=== PATIENT | female | born 1990 | race Caucasian/White ===

== ENCOUNTER 2016-12-15 00:05 | Emergency (ER) | payer MEDICAID ==
[2016-12-15 00:28] VITALS: RESP 20; TEMP 98; O2SAT 99
[2016-12-15] MEDS ORDERED: LIDOCAINE HCL 2% (VISCOUS) 20 ML SOL ONE (00:30)
[2016-12-15] MEDS ORDERED: ALUMINUM/MAGNESIUM 30 ML SUS ONE (00:30)
[2016-12-15 00:35] LABS: APPEARANCE,URINE Slightly Cloudy; BILIRUBIN,URINE NEGATIVE (NEGATIVE); COLOR,URINE Yellow; GLUCOSE, URINE (UA) NEGATIVE (NEGATIVE); KETONES,URINE TRACE (NEGATIVE); LEUKOCYTE ESTERASE ,URINE NEGATIVE (NEGATIVE); NITRATE,URINE NEGATIVE (NEGATIVE); OCCULT BLOOD,URINE NEGATIVE (NEG-TRACE); PH,URINE 5.5; UROBILINOGEN,URINE 0.2 (0.2-1.0 EU)
[2016-12-15] MEDS ORDERED: ALUMINUM/MAGNESIUM 30 ML SUS PO ONE (00:43)
[2016-12-15] MEDS ORDERED: LIDOCAINE HCL 2% (VISCOUS) 20 ML SOL MT ONE (00:43)
[2016-12-15 00:45] LABS: RBC,URINE NEG (0-3AV/HPF)
[2016-12-15 00:59] VITALS: BP 123/87; PULSE 88
[2016-12-15 15:56] LABS: BASOPHILS % (AUTO) 1 % (0-3); EOSINOPHILS % (AUTO) 0 % (0-9); HEMATOCRIT 40 % (35-47); MEAN CORPUSCULAR HGB CONC 34.8 gm/dl (32.0-36.0); MEAN CORPUSCULAR VOLUME 91 fL (81-99); MONOCYTES % (AUTO) 9.6 % (0-12)
[2016-12-15 16:19] LABS: ALBUMIN 4.1 gm/dl (3.4-5.0); CALCIUM 8.9 mg/dl (8.5-10.1); POTASSIUM 3.9 mMol/L (3.5-5.1)
== END 2016-12-15 00:57 | disposition home or self-care (01) | DRG 392 ==
LOC: ED 00:05
DX: K52.9 Noninfective gastroenteritis and colitis, unspecified (principal)
CPT/HCPCS: 74176; 80053; 81001; 82150; 84703; 85025; 87088; 87205; 96365; 96366; 96374; 96375; 99283; 99284; 99285; J1885; J2405

== ENCOUNTER 2016-12-15 14:14 | Emergency (ER) | payer MEDICAID ==
[2016-12-15] MEDS ORDERED: KETOROLAC TROMETHAMINE 30 MG/ML SOL IV ONE (14:42)
[2016-12-15] MEDS ORDERED: ONDANSETRON HCL 4 MG/2 ML SOL IV ONE (14:42)
[2016-12-15] MEDS ORDERED: SODIUM CHLORIDE 0.9% 1000 ML SOL IV SCH (14:45)
[2016-12-15] MEDS ORDERED: APAP/HYDROCODONE 325/5 TAB PO ONE (15:56)
[2016-12-15] MEDS ORDERED: ONDANSETRON 4 MG ODT BU ONE (15:57)
[2016-12-15] MEDS ORDERED: LIDOCAINE HCL 1% 50 MG/5 ML SOL INFIL ONE (16:00)
[2016-12-15] MEDS ORDERED: KETOROLAC TROMETHAMINE 30 MG/ML SOL ONE (16:06)
[2016-12-15] MEDS ORDERED: ONDANSETRON HCL 4 MG/2 ML SOL ONE (16:07)
[2016-12-15 17:55] VITALS: BP 135/82; PULSE 106; TEMP 98.8; O2SAT 98
== END 2016-12-15 18:30 | disposition home or self-care (01) | DRG 392 ==
LOC: ED 14:14
DX: R10.9 Unspecified abdominal pain (principal)
CPT/HCPCS: 74176; 80053; 82150; 84703; 85025; 99285; J1885; J2405